=== PATIENT | female | born 1965 | race Caucasian/White ===

== ENCOUNTER 2020-06-12 09:55 | Emergency (ER) | payer BC, SELFPAY ==
[2020-06-12 10:15] VITALS: BP 142/98; PULSE 94; RESP 19; TEMP 36.6; O2SAT 98; BMI 29.5
--- NOTE | 2020-06-12 10:29 | HMH.EDUTC ---
[facility] [place] Disposition Clinical Impression: Exposure to COVID-19 virus Disposition: Home, Self-Care Condition on Discharge: Good Instructions: DI for COVID-19 (Suspected or Confirmed ), Coronavirus Disease 2019, Preventing the Spread of Coronavirus Discharge Instructions Additional Instructions: *Monitor Temp, Over the counter Motrin or Tylenol as directed/as needed Tylenol every 4 hours and Motrin every 6 hours (as long as your family doctor has told you that you can take it) for fever or pain. and straight to ER if unable to lower temp less than 101.0 after medication given *Warm salt water gargles may help to soothe the throat *Throat Lozenges *Warm fluids like tea with honey may help to soothe the throat *Sleep elevated *Humidifier/Vaporizer Follow up IMMEDIATELY for new or worsening symptoms or no Noticeable improvement over the next 48-72 hours. 911 for difficulty breathing or swallowing Over the counter Mucinex may help with your cough, make sure that you are drinking plenty of water with it You were tested for today for COVID19 your test result should be back in the next 24-48 hours, you may call to the [facility] to see if your test results are back in the next 48 hours [phone] [facility] hours are 9am-9pm You was given a handout with instructions for Self Quarantine and Self isolation for while you wait on test results and what to do if they are positive If you are positive the Health Dept will be contacting you also Referrals: Nile Carter MD [Primary Care Provider] - As needed Forms: Work/School Release Time of Disposition: 10:37 Medical Decision Making - Reji Inquiry Pt receiving controlled substance: No Reji was queried for this patient: No Vital Signs: 06/12/20 10:15 Temperature 97.8 F Temperature Source Oral Pulse Rate [Right Brachial] 94 H Respiratory Rate 19 Blood Pressure [Right Arm] 142/98 H Blood Pressure Mean [Right Arm] 112 Blood Pressure Source [Right Arm] Automatic Cuff Blood Pressure Position [Right Arm] Sitting 02 Sat by Pulse Oximetry 98 Oxygen Delivery Method Room Air Orders (Tests/Meds): ORDERS Category Date Time Status Covid-19 Nasal PCR ([facility]) Routine Lab 06/12/20 10:20 Received [facility] [place] HPI - General Stated complaint: covid test Time Seen by Provider: 06/12/20 10:30 Mode of Arrival: Ambulatory Source of Information: Patient Limitations: No Limitations Description of Symptoms (Recalled from Triage Doc. by RN): PATIENT REQUESTING COVID TEST D/T EXPOSURE; C/O COUGH X 2 DAYS HEENT Symptoms (Recalled from RN notes): No Resp Symptoms (Recalled from RN notes): Yes Skin Symptoms (Recalled from RN notes): No MS Symptoms (Recalled from RN notes): No Functional Status (Recalled from RN notes): WNL - History of Present Illness Provider Complaint: Patient state that she was recently exposed to COVID states that she is now having some symptoms so she wanted to come in and get tested States that she has been having body aches, cough and chills - Related Data Allergies Allergy/AdvReac Type Severity Reaction Status Date / Time No Known Allergies Allergy Verified 06/12/20 10:27 - Worker's Comp Is this a Worker's Comp case?: No H History - Hepatitis A Screen Drug use history?: No High risk sexual behaviors?: No History of sexually transmitted infection?: No Currently employed?: No Childcare worker?: No Do you have indoor plumbing?: Yes Do you have electricity?: Yes Attestation statement:: This patient has been screened for Hepatitis A risk factors. Laterality Cases: Bilateral: Tonsillectomy - Social History Alcohol Intake: never Occupational Status: other ROS Obtained: Yes All systems reviewed & no additional complaints, Yes Systems reviewed as appropriate & no additional complaints - Constitutional Constitutional: Reports system reviewed and no additional complaints, except as docu, Reports body ache, Reports chills, Denies fever(s), Denies headache(s) -
[2020-06-12 10:43] VITALS: BP 142/98; PULSE 94; RESP 19; TEMP 36.6; O2SAT 98
== END 2020-06-12 10:45 | disposition home or self-care (01) ==
PROVIDERS: Emergency Provider Nurse Practitioner; PCP Family Medicine
DX: Z20.822 Contact with and (suspected) exposure to COVID-19 (principal)
CPT/HCPCS: 99202; G0463; U0003

== ENCOUNTER → 2020-10-04 20:00 | Outpatient (CLI) | payer BC, SELFPAY | PROVIDERS: PCP Nurse Practitioner Family; Visit Provider Specialist | DX: G47.33 Obstructive sleep apnea (adult) (pediatric) (principal); I10 Essential (primary) hypertension; I63.9 Cerebral infarction, unspecified | CPT/HCPCS: 95810 ==

== ENCOUNTER → 2021-01-19 07:51 | Outpatient (CLI) | payer BC, SELFPAY ==
[2021-01-19 09:05] LABS: Chol/HDL Ratio 6.8 (1-3.5); Cholesterol 163 mg/dl (140-200); HDL Cholesterol 24 mg/dl (40-60); Triglycerides 310 mg/dl (30-150); VLDL Cholesterol 62 mg/dL (0-40)
[2021-01-19 09:15] LABS: Direct LDL Cholesterol 98.43 mg/dL (100-129)
== END ==
PROVIDERS: Visit Provider Nurse Practitioner Family
DX: I63.311 Cerebral infarction due to thrombosis of right middle cerebral artery (principal); Z72.0 Tobacco use
CPT/HCPCS: 36415; 80061

== ENCOUNTER → 2021-02-13 15:17 | Outpatient (CLI) | payer BC, SELFPAY | LOC: RT 15:19 | PROVIDERS: PCP Nurse Practitioner Family; Visit Provider Nurse Practitioner Family | DX: G47.33 Obstructive sleep apnea (adult) (pediatric) (principal); G47.8 Other sleep disorders; R53.83 Other fatigue; Z72.0 Tobacco use | CPT/HCPCS: 94762 ==

== ENCOUNTER → 2021-02-16 08:35 | Outpatient (CLI) | payer BC, SELFPAY ==
[2021-02-16 09:19] LABS: Basophils # 0.1 K/mm3 (0-0.2); Basophils % 1.3 % (0.1-2.0); Eosinophils # 0.3 K/mm3 (0.0-0.4); Eosinophils % 3.7 % (0.1-12.0); Hematocrit 43.2 % (37.0-47.0); Hemoglobin 13.7 g/dL (12.2-16.2); Lymphocytes # 2.2 K/mm3 (0.7-4.5); Lymphocytes % 26.2 % (10-50); Mean Corpuscular HGB Conc 31.7 g/dL (31.8-35.4); Mean Corpuscular Hemoglobin 29.2 pg (27.0-31.2); Mean Corpuscular Volume 92.1 fl (81-99); Mean Platelet Volume 7.4 fl (7.4-10.4); Monocytes # 0.4 K/mm3 (0.1-1.0); Monocytes % 4.8 % (1.7-9.3); Neutrophils # 5.4 K/mm3 (1.8-7.8); Neutrophils % 63.9 % (37.0-80.0); Platelet Count 373 K/mm3 (142-424); Red Cell Distribution Width 12.9 % (11.5-17.5); White Blood Count 8.5 K/mm3 (4.8-10.8)
[2021-02-16 10:29] LABS: Chloride 108 mmol/L (98-107); Potassium 4.2 mmoL/L (3.5-5.1); Sodium 143 mmol/L (136-145)
[2021-02-16 10:32] LABS: Alanine Aminotransferase 22 U/L (12-78); Albumin Level 4.3 g/dl (3.5-5.0); Albumin/Globulin Ratio 1.3 (1.1-1.8); Alkaline Phosphatase 121 U/L (38-126); Anion Gap 15.2 mEq/L (5-15); Aspartate Amino Transferase 45 U/L (14-36); Blood Urea Nitrogen 10 mg/dl (7-17); Calcium 9.7 mg/dl (8.4-10.2); Carbon Dioxide 24 mmol/L (22.0-30.0); Estimated Glomerular Filt Rate 58 ml/min (>60); GFR (African American) 70 ML/MIN (>60); Globulin 3.4 g/dL (1.3-3.2); Glucose 128 mg/dl (74-100); Total Protein,Serum 7.7 g/dl (6.3-8.2)
[2021-02-16 10:34] LABS: Bilirubin,Total 0.1 mg/dl (0.2-1.3)
[2021-02-16 11:05] LABS: 25-OH Vitamin D, Total 32.6 ng/mL (30-100); Thyroid Stimulating Hormone 2.88 uIU/mL (0.465-4.68)
[2021-02-16 11:09] LABS: Ferritin 180 ng/ml (11.1-264)
[2021-02-16 11:37] LABS: Vitamin B12 219 pg/mL (239-931)
== END ==
LOC: LAB 08:46
PROVIDERS: Visit Provider Nurse Practitioner Family
DX: I10 Essential (primary) hypertension (principal); R53.83 Other fatigue; E66.3 Overweight; Z68.30 Body mass index [BMI] 30.0-30.9, adult
CPT/HCPCS: 36415; 80053; 82306; 82607; 82728; 84443; 85025

== ENCOUNTER → 2021-04-20 07:13 | Outpatient (CLI) | payer BC, SELFPAY ==
[2021-04-20 09:04] LABS: Alanine Aminotransferase 16 U/L (12-78); Albumin Level 4.3 g/dl (3.5-5.0); Albumin/Globulin Ratio 1.5 (1.1-1.8); Alkaline Phosphatase 118 U/L (38-126); Anion Gap 11.8 mEq/L (5-15); Aspartate Amino Transferase 30 U/L (14-36); Blood Urea Nitrogen 7 mg/dl (7-17); Calcium 9.7 mg/dl (8.4-10.2); Carbon Dioxide 28 mmol/L (22.0-30.0); Chloride 104 mmol/L (98-107); Chol/HDL Ratio 5.7 (1-3.5); Cholesterol 154 mg/dl (140-200); Estimated Glomerular Filt Rate 65 ml/min (>60); GFR (African American) 79 ML/MIN (>60); Globulin 2.9 g/dL (1.3-3.2); Glucose 138 mg/dl (74-100); HDL Cholesterol 27 mg/dl (40-60); Potassium 3.8 mmoL/L (3.5-5.1); Sodium 140 mmol/L (136-145); Total Protein,Serum 7.2 g/dl (6.3-8.2); Triglycerides 223 mg/dl (30-150); VLDL Cholesterol 45 mg/dL (0-40)
[2021-04-20 09:10] LABS: Bilirubin,Total 0.1 mg/dl (0.2-1.3)
[2021-04-20 09:15] LABS: Direct LDL Cholesterol 97.12 mg/dL (100-129)
== END ==
PROVIDERS: Visit Provider Nurse Practitioner Family
DX: E78.5 Hyperlipidemia, unspecified (principal)
CPT/HCPCS: 36415; 80053; 80061

== ENCOUNTER 2021-10-17 13:10 | Emergency (ER) | payer OTHER, BC, SELFPAY ==
[2021-10-17 13:18] VITALS: BP 137/80; PULSE 85; RESP 16; TEMP 36.9; O2SAT 94; BMI 31.1
[2021-10-17 14:36] VITALS: BP 133/74; PULSE 76; RESP 19; TEMP 36.8; O2SAT 99; BMI 30.2
--- NOTE | 2021-10-17 14:42 | HMH.EDUTC ---
[facility] [place] Clinical Impression: Need for Tdap vaccination Avulsion of skin of right hand Qualifiers: Encounter type: initial encounter Qualified Code(s): S61.401A - Unspecified open wound of right hand, initial encounter Laceration of right hand Qualifiers: Encounter type: initial encounter Foreign body presence: without foreign body Qualified Code(s): S61.411A - Laceration without foreign body of right hand, initial encounter Disposition: Home, Self-Care Condition on Discharge: Good Instructions: DI for Avulsion Laceration (Not Requiring Sutures), How to Care for a Laceration After Repair, DI for Laceration Repair -- Simple Additional Instructions: Keep the wound clean and dry. Keep a dressing on it if you are going to be getting it dirty. Watch the for signs of infection, such as redness, swelling, drainage, fever. etc. Take tylenol or ibuprofen for pain. Follow up with your regular doctor. Return in 7 to 10 days to have the sutures removed. GO TO THE ER FOR ANY WORSENING SYMPTOMS OR CONCERNS. Prescriptions: cephALEXin [cephALEXin 500mg capsule] 500 mg PO Q6H 10 Days #40 cap Transmission Status: Pending to [facility] Referrals: Octavia Obrien APRN [Primary Care Provider] - Forms: Work/School Release Time of Disposition: 16:08 Medical Decision Making - Medical Records Medical records reviewed: No: I reviewed the patient's medical records. - Reji Inquiry Pt receiving controlled substance: No Vital Signs: 10/17/21 13:18 10/17/21 14:36 Temperature 98.4 F 98.2 F Temperature Source Oral Oral Pulse Rate [Left Radial] 85 76 Respiratory Rate 16 19 Blood Pressure [Left Arm] 137/80 133/74 Blood Pressure Mean [Left Arm] 99 93 Blood Pressure Source [Left Arm] Automatic Cuff Blood Pressure Position [Left Arm] Sitting 02 Sat by Pulse Oximetry 94 L 99 Oxygen Delivery Method Room Air Orders (Tests/Meds): ED MEDICATIONS Discontinued Medications Generic Name Dose Route Start Last Admin Trade Name Freq PRN Reason Stop Dose Admin Tetanus/Reduced Diphtheria/Acell Pertussis 0.5 ml 10/17/21 14:41 10/17/21 14:54 Tet/Diphth/Pert-Adult 0.5ml Syringe IM 10/17/21 14:42 0.5 ml .ONCE ONE Administration [facility] [place] - General Stated complaint: wc 10/17, right hand laceration Time Seen by Provider: 10/17/21 14:42 Mode of Arrival: Ambulatory Source of Information: Patient Limitations: No Limitations Description of Symptoms (Recalled from Triage Doc. by RN): pt here for cut on right hand. cut occured at work. HEENT Symptoms (Recalled from RN notes): No Resp Symptoms (Recalled from RN notes): No Skin Symptoms (Recalled from RN notes): Yes MS Symptoms (Recalled from RN notes): No Functional Status (Recalled from RN notes): wnl - History of Present Illness Provider Complaint: She was at work today at [employer] when the skin of the palm of her right hand became pinched between 2 pieces of metal. This caused a skin avulsion type injury with a flap type laceration.She denies any other injury. - Related Data Home Medications Medication Instructions Recorded Confirmed aspirin 81 mg tablet,delayed 81 mg PO DAILY 09/18/20 08/14/21 release rosuvastatin 10 mg tablet 10 mg PO DAILY 09/18/20 08/14/21 fenofibrate micronized 134 mg 134 mg PO DAILY cap 01/25/21 08/14/21 capsule mecobalamin (vitamin B12) 10,000 1,000 mcg IM .COMPLEX each 06/11/21 08/14/21 mcg solution for injection metoprolol succinate 25 mg 75 mg PO ONCE tab 06/11/21 08/14/21 tablet,extended release 24 hr sitagliptin 100 mg tablet 100 mg PO DAILY 06/11/21 08/14/21 Previous Rx's Medication Instructions Recorded cephALEXin [cephALEXin 500mg 500 mg PO Q6H 10 Days #40 cap 10/17/21 capsule] Allergies Allergy/AdvReac Type Severity Reaction Status Date / Time No Known Allergies Allergy Verified 10/17/21 14:39 - Worker's Comp Is this a Worker's Comp case?: Yes [facility] History
[2021-10-17 16:26] VITALS: BP 133/74; PULSE 76; RESP 19; TEMP 36.8
== END 2021-10-17 16:27 | disposition home or self-care (01) ==
LOC: ER 13:19 → UTC 13:19
PROVIDERS: Emergency Provider Nurse Practitioner Family; PCP Nurse Practitioner Family
DX: S61.411A Laceration without foreign body of right hand, initial encounter (principal); W31.89XA Contact with other specified machinery, initial encounter; Y92.63 Factory as the place of occurrence of the external cause; Y99.0 Civilian activity done for income or pay; F17.210 Nicotine dependence, cigarettes, uncomplicated; Z23 Encounter for immunization
CPT/HCPCS: 12001; 90715; 99213; G0463

== ENCOUNTER → 2021-11-05 07:26 | Outpatient (CLI) | payer BC, SELFPAY ==
[2021-11-05 08:20] LABS: Glucose 138 mg/dl (74-100); Total Protein,Serum 7.4 g/dl (6.3-8.2)
[2021-11-05 08:38] LABS: Hemoglobin A1C 6.7 % (4.0-6.0)
[2021-11-05 09:04] LABS: Albumin Level 4.6 g/dl (3.5-5.0); Albumin/Globulin Ratio 1.6 (1.1-1.8); Chloride 110 mmol/L (98-107); Globulin 2.8 g/dL (1.3-3.2); Potassium 4.1 mmoL/L (3.5-5.1); Sodium 143 mmol/L (136-145)
[2021-11-05 09:06] LABS: Blood Urea Nitrogen 11 mg/dl (7-17); Estimated Glomerular Filt Rate 58 ml/min (>60); GFR (African American) 70 ML/MIN (>60)
[2021-11-05 09:07] LABS: Alanine Aminotransferase 19 U/L (12-78); Alkaline Phosphatase 97 U/L (38-126); Anion Gap 12.1 mEq/L (5-15); Aspartate Amino Transferase 34 U/L (14-36); Bilirubin,Total 0.3 mg/dl (0.2-1.3); Calcium 10.4 mg/dl (8.4-10.2); Carbon Dioxide 25 mmol/L (22.0-30.0); Chol/HDL Ratio 6.2 (1-3.5); Cholesterol 161 mg/dl (140-200); HDL Cholesterol 26 mg/dl (40-60); Triglycerides 255 mg/dl (30-150); VLDL Cholesterol 51 mg/dL (0-40)
[2021-11-05 09:09] LABS: Vitamin B12 435 pg/mL (239-931)
[2021-11-05 09:18] LABS: Direct LDL Cholesterol 97.99 mg/dL (100-129)
== END ==
LOC: LAB 07:28
PROVIDERS: PCP Nurse Practitioner Family; Visit Provider Nurse Practitioner Family
DX: E11.65 Type 2 diabetes mellitus with hyperglycemia (principal); E78.5 Hyperlipidemia, unspecified; E53.8 Deficiency of other specified B group vitamins; Z79.84 Long term (current) use of oral hypoglycemic drugs
CPT/HCPCS: 36415; 80053; 80061; 82607; 83036; 84443

== ENCOUNTER → 2022-01-21 12:41 | Outpatient (CLI) | payer BC, SELFPAY ==
--- NOTE | 2022-01-21 12:45 | CA_ITS ---
FINAL REPORT TECHNIQUE: Color Doppler, duplex Doppler and compression sonography of the right lower extremity venous system was performed. CLINICAL HISTORY: Pain for 1 week, pt felt a pop behind her right knee on friday and has had pain and edema in calf since. Pt takes ASA 81 mg q day. CVA 2020, DM, FINDINGS: There is no evidence of deep venous thrombosis from the level of the groin to the calf. The veins are patent and compressible. A small to moderate presumed popliteal cyst is identified. IMPRESSION: No evidence of deep venous thrombosis right lower extremity. Small to moderate presumed popliteal cyst. Reviewed, Interpreted and Dictated by Fawad Wan III, MD Transcribed by Lolis Joyce Authenticated and [facility]
== END ==
LOC: RT 12:43
PROVIDERS: PCP Nurse Practitioner Family; Visit Provider Nurse Practitioner Family
DX: M79.604 Pain in right leg (principal); H02.842 Edema of right lower eyelid
CPT/HCPCS: 93971

== ENCOUNTER → 2022-05-01 14:12 | Outpatient (CLI) | payer BC, SELFPAY ==
--- NOTE | 2022-05-01 14:18 | MR_ITS ---
FINAL REPORT CLINICAL HISTORY: RIGHT KNEE PAIN right knee pain since jan 2022 swelling behind knee FINDINGS: Multiplanar MR imaging of the right knee was performed without contrast. There is medial meniscal degeneration with a high-grade partial tear of the posterior root. The lateral meniscus is intact. The anterior and posterior cruciate ligaments are intact. The medial collateral ligament and lateral ligamentous complex are intact. There are foci of patellar tendinitis. The quadriceps tendon is intact. There is no evidence of fracture. There is a 6 mm mass in the distal femur likely representing an enchondroma. There is mild degenerative change. There is moderate medial compartment chondromalacia. A moderate joint effusion is seen. The musculature is intact. There is a moderate popliteal cyst. IMPRESSION: Medial meniscal degeneration with a high-grade partial tear of the posterior root. Mild degenerative change with moderate medial compartment chondromalacia. Moderate joint effusion with moderate popliteal cyst. Foci of patellar tendinitis. 6 mm mass in the distal femur is likely an enchondroma. Reviewed, Interpreted and Dictated by Fawad Wan III, MD Transcribed by Oscar Barry Authenticated and [facility]
== END ==
LOC: RAD 14:12
PROVIDERS: PCP Nurse Practitioner Family; Visit Provider Orthopaedic Surgery
DX: M25.561 Pain in right knee (principal)
CPT/HCPCS: 73721

== ENCOUNTER → 2023-04-28 13:50 | Outpatient (CLI) | payer BC, SELFPAY ==
--- OUTSIDE RECORDS SUMMARY | 2023-04-28 13:54 | XMS_ITS ---
Author Name Unknown Address [address] [place] [address] Phone Organization [facility] Address [address] [place] [address] Phone Care Team Providers Care Hat Forming Machine Feeder Name Role Phone DANNY LOVE Unavailable [phone] Mounika OLSON, Dequan Unavailable [phone] Problems Includes: Active, inactive, and resolved Problems All Visits Onset Date Resolved Date Provider Condition S tatus Joint Pain in the Right Knee 01/29/2022 Jet Yun PA-C Active Plan of Treatment Pending Tests Order Diagnosis Results Due Ordering P roankit Radiology - MRI MRI R Knee 04/23/22 Jet england PA-C Instructions to patient Intervention and counseling on cessation of tobacco use Last Documented On 3 7:47AM ; [facility] Lose weight Last Documented On 3 8:14AM ; [facility] Lose weight Last Documented On 3 8:43AM ; [facility] Intervention and counseling on cessation of tobacco use Last Documented On 3 4:51PM ; [facility] Lose weight Last Documented On 3 8:03AM ; [facility]
--- OUTSIDE RECORDS SUMMARY | 2023-04-28 13:55 | XMS_ITS | Clinical Summary ---
Author Name Unknown Address [address] [place] [address] Phone Organization [facility] , [facility] Address [address] [place] [address] Phone Care Team Providers Care Construction Specialist Name Role Phone DANNY LOVE Unavailable [phone] Mounika OLSON, Dequan Unavailable [phone] Reason for Visit and Chief Complaint The Chief Complaint is: RT Knee scope POV Problems Includes: Problems addressed during this encounter and other active Problems All Visits Onset Date Resolved Date Provider Condition S tatus Joint Pain in the Right Knee 01/29/2022 Jet Yun PA-C Active Plan of Treatment Patient was seen by myself and Dr. Alex Yun PA-C. Patient will follow up 3 weeks and allow her to hopefully get back to work. She will continue with PT weight-bear as tolerated using crutches for couple days and then transition to 10 no crutches with walking she can begin strengthening with this too - Last Documented On 08/01/2022 4:51PM ; [facility], [facility] Pending Tests Order Diagnosis Results Due Ordering P rovider Therapy - Physical Therapy Knee 08/01/22 Elias Johnson MD Instructions to patient Intervention and counseling on cessation of tobacco use Last Documented On 3 4:51PM ; [facility], [facility] Lose weight Last Documented On 3 8:03AM ; [facility], [facility] Assessments Includes: Assessments from this encounter
--- OUTSIDE RECORDS SUMMARY | 2023-04-28 13:55 | XMS_ITS | Clinical Summary ---
Author Name Unknown Address [address] [place] [address] Phone Organization [facility] Address [address] [place] [place] [address] Phone Care Team Providers Care Nursing Teacher Name Role Phone DANNY LOVE Unavailable [phone] Dequan Ribera MD Unavailable [phone] Reason for Visit and Chief Complaint The Chief Complaint is: RT Knee scope POV Problems Includes: Problems addressed during this encounter and other active Problems All Visits Onset Date Resolved Date Provider Condition S tatus Joint Pain in the Right Knee 01/29/2022 Jet Yun PA-C Active Plan of Treatment Patient was seen by myself and Dr. Alex Yun PA-C. Patient will follow up as needed recommend no significant squatting past 90 degrees for her just we will continue to work on some strengthening exercises for quad and hip - Last Documented On 10/08/2022 7:47AM ; [facility], [facility] Instructions to patient Intervention and counseling on cessation of tobacco use Last Documented On 3 7:47AM ; [facility], [facility] Lose weight Last Documented On 3 8:14AM ; [facility], [facility] Assessments Includes: Assessments from this encounter Findings Right knee scope microfracture medial femoral condyle June 19, 2022 - Last Documented On 10/08/2022 7:47AM ; [facility], [facility] Instructions Includes: Instructions from this encounter
--- OUTSIDE RECORDS SUMMARY | 2023-04-28 13:55 | XMS_ITS ---
Care Plan - [facility], [facility] Created on: April 28, 2023 Angelica Lara : 1965 Sex: Female Author Name Unknown Address [address] [place] [address] [place] [address] Phone Organization [facility] , [facility] Address [address] [place] [address] Phone Care Team Providers Care Cipher Expert Name Role Phone DANNY LOVE Unavailable [phone] Dequan Ribera MD Unavailable [phone]
--- OUTSIDE RECORDS SUMMARY | 2023-04-28 13:55 | XMS_ITS | Clinical Summary ---
Author Name Unknown Address [address] [place] [address] Phone Organization [facility] , [facility] Address [address] [place] [address] Phone Care Team Providers Care Textile Machine Operator Name Role Phone DANNY LOVE Unavailable [phone] Dequan Ribera MD Unavailable [phone] Reason for Visit and Chief Complaint The Chief Complaint is: RT Knee scope POV Problems Includes: Problems addressed during this encounter and other active Problems All Visits Onset Date Resolved Date Provider Condition S tatus Joint Pain in the Right Knee 01/29/2022 Jet Yun PA-C Active Plan of Treatment Patient was seen by myself Jet Yun PA-C. Patient will follow up with Dr. Johnson in 6 weeks we will get her back to work on Friday with no restrictions I think she can advance to home program from physical therapy and do exercises on her own recommended she not do any deep squats past 90 degrees - Last Documented On 08/23/2022 9:27AM ; [facility] Pending Tests Order Diagnosis Results Due Ordering Chanelle schwartz Radiology - MRI MRI R Knee 04/23/22 Jet england PA-C Instructions to patient Lose weight Last Documented On 8:43AM ; [facility] Assessments Includes: Assessments from this encounter Findings Right knee scope microfracture medial femoral condyle June 19, 2022 - Last Documented On 08/23/2022 9:27AM ; [facility]
--- OUTSIDE RECORDS SUMMARY | 2023-04-28 13:56 | XMS_ITS | Clinical Summary ---
Author Name Unknown Address [address] [place] [address] Phone Organization [facility] , [facility] Address [address] [place] [address] Phone Care Team Providers Care Clinical Data Abstractor Name Role Phone DANNY LOVE Unavailable [phone] Mounika OLSON, Dequan Unavailable [phone] Reason for Visit and Chief Complaint [facility] Problems Includes: Problems addressed during this encounter and other active Problems All Visits Onset Date Resolved Date Provider Condition S tatus Joint Pain in the Right Knee 01/29/2022 Jet Yun PA-C Active Plan of Treatment No Plan of Treatment Recorded Assessments Includes: Assessments from this encounter No Assessments Recorded Medical Equipment - Implanted Devices Includes: Current Devices No Medical Equipment Recorded Medications Includes: Medications discussed during this encounter and other current Medications Current Medications (continue as prescribed) Aspir-Low 81 MG Oral Tablet Delayed Release 01/29/2022 Provider: Diagnosis: Metoprolol Succinate ER 50 M G Oral Tablet Extended Release 24 Hour 01/24/2022 Provider: DANNY LOVE Diagnosis: Rosuvastatin Calcium 10 MG Oral Tablet 01/08/2022 Pr ovider: DANNY LOVE
--- OUTSIDE RECORDS SUMMARY | 2023-04-28 13:56 | XMS_ITS | Clinical Summary ---
Author Name Unknown Address [address] [place] [address] Phone Organization [facility] , [facility] Address [address] [place] [place] [address] Phone Care Team Providers Care Loan Servicing Representative Name Role Phone DANNY LOVE Unavailable [phone] Dequan Ribera MD Unavailable [phone] Reason for Visit and Chief Complaint The Chief Complaint is: RT Knee scope POV Problems Includes: Problems addressed during this encounter and other active Problems All Visits Onset Date Resolved Date Provider Condition S tatus Joint Pain in the Right Knee 01/29/2022 Jet Yun PA-C Active Plan of Treatment Patient was seen by myself Jet Yun PA-C. Patient will follow up [address] Johnson she will stay toe-touch weightbearing with the operative side with crutches we will have her start some physical therapy to maintain range of motion to be educated on quad sets straight leg raises four-way hip exercises - Last Documented On 07/02/2022 1:43PM ; [facility], [facility] Pending Tests Order Diagnosis Results Due Ordering Chanelle schwartz Radiology - MRI MRI R Knee 04/23/22 Jet england PA-C Instructions to patient Intervention and counseling on cessation of tobacco use Last Documented On 3 1:20PM ; [facility], [facility] Lose weight Last Documented On 3 1:20PM ; [facility], [facility]
[2023-04-28 14:16] LABS: Alanine Aminotransferase 14 U/L (12-78); Albumin Level 4.8 g/dl (3.5-5.0); Albumin/Globulin Ratio 1.4 (1.1-1.8); Alkaline Phosphatase 144 U/L (38-126); Anion Gap 14.5 mEq/L (5-15); Aspartate Amino Transferase 27 U/L (14-36); Bilirubin,Total 0.2 mg/dl (0.2-1.3); Blood Urea Nitrogen 14 mg/dl (7-17); Carbon Dioxide 27 mmol/L (22.0-30.0); Chloride 104 mmol/L (98-107); Chol/HDL Ratio 6.9 (1-3.5); Cholesterol 233 mg/dl (140-200); Estimated Glomerular Filt Rate 57 ml/min (>60); GFR (African American) 69 ML/MIN (>60); Globulin 3.5 g/dL (1.3-3.2); Glucose 98 mg/dl (74-100); HDL Cholesterol 34 mg/dl (40-60); Potassium 4.5 mmoL/L (3.5-5.1); Sodium 141 mmol/L (136-145); Total Protein,Serum 8.3 g/dl (6.3-8.2); Triglycerides 280 mg/dl (30-150); VLDL Cholesterol 56 mg/dL (0-40)
[2023-04-28 14:26] LABS: Direct LDL Cholesterol 131.95 mg/dL (100-129)
[2023-04-28 14:46] LABS: Thyroid Stimulating Hormone 1.79 uIU/mL (0.465-4.68)
[2023-04-28 15:01] LABS: Hemoglobin A1C 5.7 % (4.0-6.0)
[2023-04-28 18:33] LABS: Microalbumin < 6.000 mg/L (0-16.7)
== END ==
LOC: LAB.DROPOF 13:51
PROVIDERS: PCP Nurse Practitioner Family; Visit Provider Nurse Practitioner Family
DX: E78.2 Mixed hyperlipidemia (principal); E11.69 Type 2 diabetes mellitus with other specified complication; E66.9 Obesity, unspecified; Z68.27 Body mass index [BMI] 27.0-27.9, adult; Z79.84 Long term (current) use of oral hypoglycemic drugs
CPT/HCPCS: 80053; 80061; 82043; 83036; 84443

== ENCOUNTER 2023-06-16 14:18 | Outpatient (CLI) | payer BC, SELFPAY | END 2023-06-16 23:59 | LOC: LAB.DROPOF 14:19 | PROVIDERS: PCP Nurse Practitioner Family; Visit Provider Nurse Practitioner Family | DX: J02.9 Acute pharyngitis, unspecified (principal); Z72.0 Tobacco use | CPT/HCPCS: 87070 ==

== ENCOUNTER 2023-08-04 14:03 | Outpatient (CLI) | payer BC, SELFPAY ==
[2023-08-04 14:50] LABS: Hemoglobin A1C 5.7 % (4.0-6.0)
[2023-08-04 15:01] LABS: Alanine Aminotransferase 11 U/L (12-78); Albumin Level 4.4 g/dl (3.5-5.0); Albumin/Globulin Ratio 1.3 (1.1-1.8); Alkaline Phosphatase 142 U/L (38-126); Aspartate Amino Transferase 22 U/L (14-36); Bilirubin,Total 0.3 mg/dl (0.2-1.3); Blood Urea Nitrogen 15 mg/dl (7-17); Calcium 9.7 mg/dl (8.4-10.2); Carbon Dioxide 27 mmol/L (22.0-30.0); Chloride 108 mmol/L (98-107); Chol/HDL Ratio 8.6 (1-3.5); Cholesterol 257 mg/dl (140-200); Estimated Glomerular Filt Rate 65 ml/min (>60); GFR (African American) 78 ML/MIN (>60); Globulin 3.3 g/dL (1.3-3.2); Glucose 93 mg/dl (74-100); HDL Cholesterol 30 mg/dl (40-60); Sodium 141 mmol/L (136-145); Total Protein,Serum 7.7 g/dl (6.3-8.2); Triglycerides 344 mg/dl (30-150); VLDL Cholesterol 69 mg/dL (0-40)
[2023-08-04 15:12] LABS: Direct LDL Cholesterol 146.56 mg/dL (100-129)
== END 2023-08-04 23:59 ==
LOC: LAB.DROPOF 14:04
PROVIDERS: PCP Nurse Practitioner Family; Visit Provider Nurse Practitioner Family
DX: E11.69 Type 2 diabetes mellitus with other specified complication (principal); I10 Essential (primary) hypertension; E78.2 Mixed hyperlipidemia; E66.9 Obesity, unspecified; Z68.27 Body mass index [BMI] 27.0-27.9, adult; Z79.899 Other long term (current) drug therapy
CPT/HCPCS: 80053; 80061; 83036

== ENCOUNTER 2023-11-05 15:39 | Outpatient (CLI) | payer OTHER, SELFPAY ==
[2023-11-05 15:34] LABS: Alanine Aminotransferase 16 U/L (12-78); Albumin Level 4.5 g/dl (3.5-5.0); Albumin/Globulin Ratio 1.4 (1.1-1.8); Alkaline Phosphatase 127 U/L (38-126); Anion Gap 16.4 mEq/L (5-15); Aspartate Amino Transferase 29 U/L (14-36); Bilirubin,Total 0.3 mg/dl (0.2-1.3); Blood Urea Nitrogen 10 mg/dl (7-17); Calcium 9.6 mg/dl (8.4-10.2); Carbon Dioxide 26 mmol/L (22.0-30.0); Chloride 105 mmol/L (98-107); Chol/HDL Ratio 5.6 (1-3.5); Cholesterol 157 mg/dl (140-200); Estimated Glomerular Filt Rate 65 ml/min (>60); GFR (African American) 78 ML/MIN (>60); Globulin 3.2 g/dL (1.3-3.2); Glucose 87 mg/dl (74-100); HDL Cholesterol 28 mg/dl (40-60); Potassium 4.4 mmoL/L (3.5-5.1); Sodium 143 mmol/L (136-145); Total Protein,Serum 7.7 g/dl (6.3-8.2); Triglycerides 369 mg/dl (30-150); VLDL Cholesterol 74 mg/dL (0-40)
[2023-11-05 15:45] LABS: Direct LDL Cholesterol 78.25 mg/dL (100-129)
[2023-11-05 15:54] LABS: Hemoglobin A1C 6.1 % (4.0-6.0)
[2023-11-05 16:05] LABS: Thyroid Stimulating Hormone 1.99 uIU/mL (0.465-4.68)
== END 2023-11-05 23:59 | disposition home or self-care (01) ==
LOC: LAB.DROPOF 15:39
PROVIDERS: PCP Nurse Practitioner Family; Visit Provider Nurse Practitioner Family
DX: E78.2 Mixed hyperlipidemia (principal); E11.69 Type 2 diabetes mellitus with other specified complication; E66.9 Obesity, unspecified; I10 Essential (primary) hypertension; Z79.84 Long term (current) use of oral hypoglycemic drugs; Z68.28 Body mass index [BMI] 28.0-28.9, adult; Z79.899 Other long term (current) drug therapy
CPT/HCPCS: 80053; 80061; 83036; 84443

== ENCOUNTER 2024-03-08 16:37 | Outpatient (CLI) | payer OTHER, SELFPAY ==
[2024-03-08 18:27] LABS: Alanine Aminotransferase 22 U/L (12-78); Albumin Level 4.2 g/dl (3.5-5.0); Albumin/Globulin Ratio 1.4 (1.1-1.8); Alkaline Phosphatase 113 U/L (38-126); Anion Gap 12.7 mEq/L (5-15); Aspartate Amino Transferase 44 U/L (14-36); Bilirubin,Total 0.4 mg/dl (0.2-1.3); Blood Urea Nitrogen 11 mg/dl (7-17); Calcium 9.8 mg/dl (8.4-10.2); Carbon Dioxide 24 mmol/L (22.0-30.0); Chloride 103 mmol/L (98-107); Chol/HDL Ratio 5.3 (1-3.5); Cholesterol 126 mg/dl (140-200); Estimated Glomerular Filt Rate 65 ml/min (>60); GFR (African American) 78 ML/MIN (>60); Globulin 3.1 g/dL (1.3-3.2); Glucose 132 mg/dl (74-100); HDL Cholesterol 24 mg/dl (40-60); Potassium 3.7 mmoL/L (3.5-5.1); Sodium 136 mmol/L (136-145); Total Protein,Serum 7.3 g/dl (6.3-8.2); Triglycerides 184 mg/dl (30-150); VLDL Cholesterol 37 mg/dL (0-40)
[2024-03-08 18:38] LABS: Direct LDL Cholesterol 71.69 mg/dL (100-129)
[2024-03-08 18:59] LABS: Thyroid Stimulating Hormone 1.62 uIU/mL (0.465-4.68)
== END 2024-03-08 23:59 | disposition home or self-care (01) ==
LOC: LAB.DROPOF 03-10 16:37
PROVIDERS: PCP Nurse Practitioner Family; Visit Provider Nurse Practitioner Family
DX: E78.2 Mixed hyperlipidemia (principal); E11.69 Type 2 diabetes mellitus with other specified complication; E66.9 Obesity, unspecified; I10 Essential (primary) hypertension; Z68.29 Body mass index [BMI] 29.0-29.9, adult; Z72.0 Tobacco use
CPT/HCPCS: 80053; 80061; 82043; 83036; 84443

== ENCOUNTER 2024-06-23 09:44 | Outpatient (CLI) | payer OTHER, SELFPAY ==
[2024-06-23 14:09] LABS: Albumin Level 4.7 g/dl (3.5-5.0); Chloride 107 mmol/L (98-107); Potassium 4.4 mmoL/L (3.5-5.1); Sodium 139 mmol/L (136-145)
[2024-06-23 14:11] LABS: Blood Urea Nitrogen 18 mg/dl (7-17); Estimated Glomerular Filt Rate 51 ml/min (>60); GFR (African American) 62 ML/MIN (>60)
[2024-06-23 14:12] LABS: Alanine Aminotransferase 22 U/L (12-78); Albumin/Globulin Ratio 1.7 (1.1-1.8); Alkaline Phosphatase 127 U/L (38-126); Anion Gap 14.4 mEq/L (5-15); Aspartate Amino Transferase 31 U/L (14-36); Bilirubin,Total 0.2 mg/dl (0.2-1.3); Calcium 10.1 mg/dl (8.4-10.2); Carbon Dioxide 22 mmol/L (22.0-30.0); Chol/HDL Ratio 5.6 (1-3.5); Cholesterol 141 mg/dl (140-200); Globulin 2.8 g/dL (1.3-3.2); Glucose 244 mg/dl (74-100); HDL Cholesterol 25 mg/dl (40-60); Total Protein,Serum 7.5 g/dl (6.3-8.2); Triglycerides 275 mg/dl (30-150); VLDL Cholesterol 55 mg/dL (0-40)
[2024-06-23 14:23] LABS: Direct LDL Cholesterol 82.18 mg/dL (100-129)
[2024-06-23 14:25] LABS: Creatinine,Urine Random 22 mg/dL (Not Estab.); Microalbumin < 6.000 mg/L (0-16.7)
[2024-06-23 14:44] LABS: Thyroid Stimulating Hormone 2.31 uIU/mL (0.465-4.68)
== END 2024-06-23 23:59 | disposition home or self-care (01) ==
LOC: LAB.DROPOF 06-24 09:44
PROVIDERS: PCP Nurse Practitioner Family; Visit Provider Nurse Practitioner Family
DX: E78.2 Mixed hyperlipidemia (principal); E66.9 Obesity, unspecified; E11.69 Type 2 diabetes mellitus with other specified complication; I10 Essential (primary) hypertension
CPT/HCPCS: 80053; 80061; 82043; 82570; 83036; 84443

== ENCOUNTER 2024-09-08 10:40 | Outpatient (CLI) | payer OTHER, SELFPAY ==
[2024-09-08 11:29] LABS: Albumin Level 4.9 g/dl (3.5-5.0); Chloride 106 mmol/L (98-107); Potassium 4.2 mmoL/L (3.5-5.1); Sodium 142 mmol/L (136-145)
[2024-09-08 11:31] LABS: Blood Urea Nitrogen 15 mg/dl (7-17)
[2024-09-08 11:32] LABS: Alanine Aminotransferase 25 U/L (12-78); Albumin/Globulin Ratio 1.5 (1.1-1.8); Alkaline Phosphatase 167 U/L (38-126); Anion Gap 15.2 mEq/L (5-15); Aspartate Amino Transferase 37 U/L (14-36); Bilirubin,Total 0.4 mg/dl (0.2-1.3); Calcium 10.2 mg/dl (8.4-10.2); Carbon Dioxide 25 mmol/L (22.0-30.0); Cholesterol 162 mg/dl (140-200); Estimated Glomerular Filt Rate 57 ml/min (>60); GFR (African American) 69 ML/MIN (>60); Globulin 3.3 g/dL (1.3-3.2); Glucose 164 mg/dl (74-100); Total Protein,Serum 8.2 g/dl (6.3-8.2); Triglycerides 269 mg/dl (30-150); VLDL Cholesterol 54 mg/dL (0-40)
[2024-09-08 11:33] LABS: Chol/HDL Ratio 5.4 (1-3.5); HDL Cholesterol 30 mg/dl (40-60)
[2024-09-08 11:44] LABS: Direct LDL Cholesterol 90.63 mg/dL (100-129)
[2024-09-08 12:03] LABS: Thyroid Stimulating Hormone 2.71 uIU/mL (0.465-4.68)
[2024-09-08 12:08] LABS: Hemoglobin A1C 7.6 % (4.0-6.0)
[2024-09-08 12:11] LABS: HIV Combo NEGATIVE (Negative)
[2024-09-08 12:20] LABS: Hepatitis C Ab Qual. W/ RFX NEGATIVE (Negative)
[2024-09-10 16:20] LABS: Alkaline Phosphatase 184 IU/L (44-121); Bone Fraction: 62 % (14-68); Intestinal Frac.: 4 % (0-18); Liver Fraction: 35 % (18-85)
== END 2024-09-08 23:59 | disposition home or self-care (01) ==
LOC: LAB.DROPOF 10:41
PROVIDERS: PCP Nurse Practitioner Family; Visit Provider Nurse Practitioner Family
DX: E11.69 Type 2 diabetes mellitus with other specified complication (principal); Z11.4 Encounter for screening for human immunodeficiency virus [HIV]; Z11.59 Encounter for screening for other viral diseases; E66.9 Obesity, unspecified; E78.2 Mixed hyperlipidemia; I10 Essential (primary) hypertension; R74.8 Abnormal levels of other serum enzymes
CPT/HCPCS: 80053; 80061; 83036; 83735; 84075; 84080; 84443; 86803; 87389

== ENCOUNTER 2024-12-15 14:14 | Outpatient (CLI) | payer OTHER, SELFPAY ==
[2024-12-15 14:52] LABS: Hemoglobin A1C 9.2 % (4.0-6.0)
[2024-12-15 15:37] LABS: Albumin Level 5.1 g/dl (3.5-5.0); Chloride 102 mmol/L (98-107); Potassium 5.2 mmoL/L (3.5-5.1); Sodium 140 mmol/L (136-145)
[2024-12-15 15:39] LABS: Blood Urea Nitrogen 15 mg/dl (7-17); Creatinine,Serum 1.00 mg/dl (0.52-1.04); Estimated Glomerular Filt Rate 57 ml/min (>60); GFR (African American) 69 ML/MIN (>60)
[2024-12-15 15:40] LABS: Alanine Aminotransferase 22 U/L (12-78); Albumin/Globulin Ratio 1.5 (1.1-1.8); Alkaline Phosphatase 124 U/L (38-126); Anion Gap 19.2 mEq/L (5-15); Aspartate Amino Transferase 34 U/L (14-36); Bilirubin,Total 0.3 mg/dl (0.2-1.3); Calcium 10.4 mg/dl (8.4-10.2); Carbon Dioxide 24 mmol/L (22.0-30.0); Cholesterol 144 mg/dl (140-200); Globulin 3.3 g/dL (1.3-3.2); Glucose 152 mg/dl (74-100); HDL Cholesterol 28 mg/dl (40-60); Magnesium 2.2 mg/dl (1.6-2.3); Total Protein,Serum 8.4 g/dl (6.3-8.2); Triglycerides 289 mg/dl (30-150)
[2024-12-15 16:10] LABS: Thyroid Stimulating Hormone 2.73 uIU/mL (0.465-4.68)
== END 2024-12-15 23:59 | disposition home or self-care (01) ==
LOC: LAB.DROPOF 14:15
PROVIDERS: PCP Nurse Practitioner Family; Visit Provider Nurse Practitioner Family
DX: E11.9 Type 2 diabetes mellitus without complications (principal); E66.9 Obesity, unspecified; I10 Essential (primary) hypertension; E78.2 Mixed hyperlipidemia
CPT/HCPCS: 80053; 80061; 82043; 82570; 83036; 83735; 84443

== ENCOUNTER 2025-03-16 09:25 | Outpatient (CLI) | payer OTHER, SELFPAY ==
[2025-03-16 17:12] LABS: Hemoglobin A1C 8.0 % (4.0-6.0)
[2025-03-16 17:32] LABS: Alanine Aminotransferase 25 U/L (12-78); Albumin Level 4.8 g/dl (3.5-5.0); Albumin/Globulin Ratio 1.5 (1.1-1.8); Alkaline Phosphatase 215 U/L (38-126); Anion Gap 21.6 mEq/L (5-15); Aspartate Amino Transferase 34 U/L (14-36); Bilirubin,Total 0.5 mg/dl (0.2-1.3); Blood Urea Nitrogen 18 mg/dl (7-17); Calcium 9.8 mg/dl (8.4-10.2); Carbon Dioxide 24 mmol/L (22.0-30.0); Chloride 102 mmol/L (98-107); Cholesterol 146 mg/dl (140-200); Creatinine,Serum 1.20 mg/dl (0.52-1.04); Estimated Glomerular Filt Rate 46 ml/min (>60); GFR (African American) 56 ML/MIN (>60); Globulin 3.1 g/dL (1.3-3.2); Glucose 173 mg/dl (74-100); HDL Cholesterol 25 mg/dl (40-60); Magnesium 2.2 mg/dl (1.6-2.3); Potassium 4.6 mmoL/L (3.5-5.1); Sodium 143 mmol/L (136-145); Total Protein,Serum 7.9 g/dl (6.3-8.2); Triglycerides 367 mg/dl (30-150)
[2025-03-16 18:01] LABS: Thyroid Stimulating Hormone 4.13 uIU/mL (0.465-4.68)
[2025-03-18 11:12] LABS: Triiodothyronine (T3) Free 3.8 pg/mL (2.0-4.4)
[2025-03-18 12:48] LABS: FSH 54.7 mIU/mL (.)
[2025-03-18 14:12] LABS: Cortisol,AM 11.8 ug/dL (6.2-19.4)
== END 2025-03-16 23:59 | disposition home or self-care (01) ==
LOC: LAB.DROPOF 03-18 00:24
PROVIDERS: PCP Nurse Practitioner Family; Visit Provider Nurse Practitioner Family
DX: E78.2 Mixed hyperlipidemia (principal); E11.69 Type 2 diabetes mellitus with other specified complication; E66.9 Obesity, unspecified; I10 Essential (primary) hypertension; R23.2 Flushing
CPT/HCPCS: 80053; 80061; 82533; 82670; 83001; 83036; 83735; 84144; 84443; 84481

== ENCOUNTER 2025-03-30 08:48 | Outpatient (CLI) | payer OTHER, SELFPAY ==
[2025-03-30 13:42] LABS: Anion Gap 19.4 mEq/L (5-15); Blood Urea Nitrogen 17 mg/dl (7-17); Calcium 10.1 mg/dl (8.4-10.2); Carbon Dioxide 23 mmol/L (22.0-30.0); Chloride 102 mmol/L (98-107); Creatinine,Serum 1.00 mg/dl (0.52-1.04); Estimated Glomerular Filt Rate 57 ml/min (>60); GFR (African American) 69 ML/MIN (>60); Glucose 229 mg/dl (74-100); Potassium 4.4 mmoL/L (3.5-5.1); Sodium 140 mmol/L (136-145)
--- OUTSIDE RECORDS SUMMARY | 2025-03-31 13:23 | XMS_ITS | Clinical Summary ---
Author Organization [facility] , [facility] Address [address] [place] [address] Phone Care Team Providers Care Wirer Maintenance Name Role Phone DANNY LOVE Unavailable [phone] Dequan Ribera MD Unavailable [phone] Reason for Visit and Chief Complaint [facility] Problems Includes: Problems addressed during this encounter and other active Problems All Visits Onset Date Resolved Date Provider Condition S tatus Joint Pain Right Knee 01/29/2022 Jet Yun PA-C Active Last Documented On 2 2:52PM ; [facility], [facility] Plan of Treatment No Plan of Treatment Recorded Assessments Includes: Assessments from this encounter No Assessments Recorded Medical Equipment - Implanted Devices Includes: Current Devices No Medical Equipment Recorded Medications Includes: Medications discussed during this encounter and other current Medications Current Medications (continue as prescribed) Aspir-Low 81 MG Oral Tablet Delayed Release 01/29/2022 Provider: Diagnosis: Last Documented On 2 3:07PM By Mervat Temple [facility], [facility] Metoprolol Succinate ER 50 M G Oral Tablet Extended Release 24 Hour 01/24/2022 Provider: DANNY LOVE Diagnosis: Last Documented On 2 3:06PM By Mervat Paula ; [facility], [facility] Rosuvastatin Calcium 10 MG Oral Tablet 01/08/2022 Pr ovider: DANNY LOVE Diagnosis: Last Documented On 2 3:06PM By Mervat Paula ; [facility], [facility] Fenofibrate Micronized 134 MG Oral Capsule 11/13/2021 Provider: DANNY LOVE Diagnosis: Last Documented On 2 3:06PM By Mervat Paula ; [facility], [facility] Januvia 100 MG Oral Tablet 10/26/2021 Provider: Joelle LOVE Diagnosis: Last Documented On 2 3:06PM By Mervat [facility], [facility] Medications Administered Includes: Administered Medications from this encounter No Administered Medications Recorded Results Includes: Results discussed during this encounter No Results Recorded For Specified Dates History of Present Illness Includes: History of Present Illness from this encounter No History of Present Illness Recorded Social History No Social History Recorded - Smoking Status Unknown Medical History Includes: Medical History addressed during this encounter No Medical History Recorded Family History Includes: Family History addressed during this encounter No Family History Recorded Review of Systems Includes: Review of Systems from this encounter No Review of Systems Recorded Mental Status Includes: Mental Status from this encounter No Mental Status Recorded Functional Status Includes: Functional Status from this encounter No Functional Status Recorded Physical Exam Includes: Physical Exam from this encounter No Physical Exam Recorded Allergies Includes: Active Allergies No Known Allergies Encounters Encounter Provider Location Date Check-In Time Check-Out Time Diagnosis [facility] Elias Johnson MD Surgery 3 06/20/2022 10:51AM 11:59PM Insurance Includes: Active Insurance Policies Plan Name Member ID Group # Subscriber Relationship Effect merari Dates 1 - [facility] [id number] Angelica Hicks 06/09/2021 - Unknown Clinical Notes Includes: Clinical Notes from this encounter No Clinical Notes Recorded
--- OUTSIDE RECORDS SUMMARY | 2025-03-31 13:23 | XMS_ITS | Clinical Summary ---
Author Organization [facility] , [facility] Address [address] [place] [address] Phone Care Team Providers Care Mangle Feeder Name Role Phone DANNY LOVE Unavailable [phone] Dequan Ribera MD Unavailable [phone] Reason for Visit and Chief Complaint The Chief Complaint is: RT Knee scope POV Problems Includes: Problems addressed during this encounter and other active Problems All Visits Onset Date Resolved Date Provider Condition S tatus Joint Pain Right Knee 01/29/2022 Jet Yun PA-C Active Last Documented On 2 2:52PM ; [facility], [facility] Plan of Treatment Patient was seen by [...] - Last Documented On 08/23/2022 9:27AM ; [facility], [facility] Pending Tests Order Diagnosis Results Due Ordering Chanelle schwartz Radiology - MRI MRI R Knee 04/23/22 Jet england PA-C Last Documented On 2 3:58PM ; [facility], [facility] Instructions to patient Lose weight Last Documented On 3 8:43AM ; [facility], [facility] Assessments Includes: Assessments from this encounter Findings Right knee scope microfracture medial femoral condyle June 19, 2022 - Last Documented On 08/23/2022 9:27AM ; [facility], [facility] Instructions Includes: Instructions from this encounter Instructions to patient Lose weight Last Documented On 3 8:43AM ; [facility], [facility] Medical Equipment - Implanted Devices Includes: Current Devices No Medical Equipment Recorded Medications Includes: Medications discussed during this encounter and other current Medications Current Medications (continue as prescribed) Aspir-Low 81 MG Oral Tablet Delayed Release 01/29/2022 Provider: Diagnosis: Last Documented On 2 3:07PM By Mervat Paula ; [facility] Metoprolol Succinate ER 50 M G Oral Tablet Extended Release 24 Hour 01/24/2022 Provider: DANNY LOVE Diagnosis: Last Documented On 2 3:06PM By Mervat Paula ; [facility] Rosuvastatin Calcium 10 MG Oral Tablet 01/08/2022 Pr ovider: DANNY LOVE Diagnosis: Last Documented On 2 3:06PM By Mervat Paula ; [facility] Fenofibrate Micronized 134 MG Oral Capsule 11/13/2021 Provider: DANNY LOVE Diagnosis: Last Documented On 2 3:06PM By Mervat Paula ; [facility] Januvia 100 MG Oral Tablet 10/26/2021 Provider: Joelle LOVE Diagnosis: Last Documented On 2 3:06PM By Mervat Paula ; [facility] Past Medications on file HYDROcodone-Acetaminophen 5- 325 MG Oral Tablet 06/17/2022 - 07/02/2022 Provider: Elias Johnson MD Diagnosis: 1 po q 4h prn pain Last Documented On 3 9:26AM By Elias Johnson ; [facility], [facility] Medications Administered Includes: Administered Medications from this encounter No Administered Medications Recorded Results Includes: Results discussed during this encounter No Results Recorded For Specified Dates History of Present Illness Includes: History of Present Illness from this encounter HPI Angelica Lara is a 57 year old female. - Allergy list reviewed - Problem list reviewed - Medication list reviewed with patient Patient is here today for follow-up of her right knee scope with microfracture medial femoral condyle June 19, 2022. Patient states she is doing good she really has no pain with the right knee she finished out physical therapy 's week. She would like to see if she can get back to work at this point in time Social History Description Last Updated Tobacco use 10/08/2022 Last Documented On 3 8:43AM ; [facility] Alcohol use 10/08/2022 Last Documented On 3 8:43AM ; [facility] Not using drugs 10/08/2022 Last Documented On 3 8:43AM ; [facility] Yes, current smoker. 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 Last Documented On 3 8:43AM ; [facility], [facility] Not a tobacco non-user 01/29/2022 Last Documented On 3 8:43AM ; [facility] Smoking Status Unknown Procedures and Surgical History Includes: Procedures from this encounter Procedures Code Diagnosis Performing Provider Service L ocation Service Date use of tobacco assessment performed 1000F Last Documented On 3 8:43AM ; [facility], [facility] Surgical History Last Updated History of appendectomy 01/29/2022 Last Documented On 3 8:43AM ; [facility] History of History of Gallbladder 2021 Last Documented On 3 8:43AM ; [facility], [facility] Medical History Includes: Medical History addressed during this encounter Description Last Updated No recent immunization for pneumococcal pneumonia 01/29/2022 Last Documented On 3 8:43AM ; [facility] Recent immunization for flu 2020 022 Last Documented On 3 8:43AM ; [facility], [facility] History of History of Heart Attack / Str presley 01/29/2022 Last Documented On 3 8:43AM ; [facility], [facility] History of Sleep Apnea 01/29/2022 Last Documented On 3 8:43AM ; [facility], [facility] Recent immunization for flu 01/29/2022 Last Documented On 3 8:43AM ; [facility], [facility] Use of CPAP 01/29/2022 Last Documented On 3 8:43AM ; [facility], [facility] Family History Includes: Family History addressed during this encounter Description Last Updated Family history of cancer 01/29/2022 Last Documented On 3 8:43AM ; [facility] Stroke / Seizures 01/29/2022 Last Documented On 3 8:43AM ; [facility], [facility] Maternal grandfather's history of Stroke / Seizures 01/29/2022 Last Documented On 3 8:43AM ; [facility], [facility] Maternal grandmother's history of Stroke / Seizures 01/29/2022 Last Documented On 3 8:43AM ; [facility], [facility] Maternal history of family history of ca ncer 01/29/2022 Last Documented On 3 8:43AM ; [facility] Paternal grandfather's history of Stroke / Seizures 01/29/2022 Last Documented On 3 8:43AM ; [facility], [facility] Paternal history of Stroke / Seizures Last Documented On 3 8:43AM ; [facility], [facility] Review of Systems Includes: Review of Systems from this encounter Systemic: No symptoms, not feeling tired, no recent weight loss, and no recent weight gain. Head: No headache and no sinus pain. Eyes: No vision problems and no Cataracts. Glasses/Contacts. No Glaucoma. Otolaryngeal: Hearing loss. No tinnitus. Cardiovascular: No chest pain or discomfort, no palpitations, and no Hypertension. High Cholesterol. Pulmonary: No daytime asthma symptoms and no chronic cough. No wheezing. Gastrointestinal: No heartburn and no abdominal pain. No Indigestion, no Acid Reflux, no Peptic Ulcer, no GI Stomach Bleed, and no Ulcers. Endocrine: No hot flashes, no muscle weakness, no Diabetes, no Hypothyroid, and no Hyperthyroid. Hematologic: No easy bleeding, no tendency for easy bruising, and no Anemia. Musculoskeletal: No Arthritis and no lower back pain. No soft tissue swelling and no localized joint pain. Neurological: No dizziness, no convulsions, and no numbness. Psychological: No anxiety, no emotional lability, no depression, and no insomnia. Not crying for no reason. Skin: Skin symptoms Have clip in right breast from biopsy. No dry skin. No Ulcers, no Scars, and no rash. Allergic and Immunologic: No complaint of seasonal allergic reaction. Mental Status Includes: Mental Status from this encounter Description No anxiety Functional Status Includes: Functional Status from this encounter No Functional Status Recorded Physical Exam Includes: Physical Exam from this encounter Allergies Includes: Active Allergies No Known Allergies Encounters Encounter Provider Location Date Check-In Time Check- Out Time Diagnosis Post Op Jet Yun PA-C [facility] 3 8:33AM 9:08AM Insurance Includes: Active Insurance Policies Plan Name Member ID Group # Subscriber Relationship Effect [facility] Dates [id number] Angelica Lara Self 06/09/2021 - Unknown Clinical Notes Includes: Clinical Notes from this encounter * Progress note Date Encounter Last Documented by 08/23/2022 Post Op Last documented on 08/23/2022; 9:27 AM, Jet Yun PA-C; [facility] Active Problems & Conditions - Joint Pain in the Right Knee Chief Complaint The Chief Complaint is: RT Knee scope POV. Referred Here Referred by Self. History of Present Illness Angelica Lara is a 57 year old female. - Allergy list reviewed - Problem list reviewed - Medication list reviewed with patient Patient is here today for follow-up of her right knee scope with microfracture medial femoral condyle June 19, 2022. Patient states she is doing good she really has no pain with the right knee she finished out physical therapy 's week. She would like to see if she can get back to work at this point in time Current Medication - Aspir-Low 81 MG Oral Tablet Delayed Release 0 days, 0 refills - Fenofibrate Micronized 134 MG Oral Capsule 90 days, 0 refills - Januvia 100 MG Oral Tablet 90 days, 0 refills - Metoprolol Succinate ER 50 MG Oral Tablet Extended Release 24 Hour 90 days, 0 refills - Rosuvastatin Calcium 10 MG Oral Tablet 90 days, 0 refills Past Medical/Surgical History Reported: Use of CPAP. Immunization History: Recent immunization for flu 2020. Recent immunization for flu. No recent immunization for pneumococcal pneumonia. Diagnoses: Sleep Apnea History of Heart Attack / Stroke Procedural: - History of Gallbladder Surgical: - Appendectomy Social History Yes, current smoker. Current diet: No recent change in diet. Caffeine use: Caffeine use. Tobacco use: Tobacco use. Not a tobacco non-user. Alcohol: Alcohol use alcohol use: 2 drinks or less per day. Drug Use: Not using drugs. Never used drugs. Habits: Exercising regularly. 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 Allergies - No Known Allergies Family History Cancer Stroke / Seizures Paternal: Stroke / Seizures Maternal: Cancer Paternal grandfather's: Stroke / Seizures Maternal grandfather's: Stroke / Seizures Maternal grandmother's: Stroke / Seizures Review Of Systems Systemic: No symptoms, not feeling tired, no recent weight loss, and no recent weight gain. Head: No headache and no sinus pain. Eyes: No vision problems and no Cataracts. Glasses/Contacts. No Glaucoma. Otolaryngeal: Hearing loss. No tinnitus. Cardiovascular: No chest pain or discomfort, no palpitations, and no Hypertension. High Cholesterol. Pulmonary: No daytime asthma symptoms and no chronic cough. No wheezing. Gastrointestinal: No heartburn and no abdominal pain. No Indigestion, no Acid Reflux, no Peptic Ulcer, no GI Stomach Bleed, and no Ulcers. Endocrine: No hot flashes, no muscle weakness, no Diabetes, no Hypothyroid, and no Hyperthyroid. Hematologic: No easy bleeding, no tendency for easy bruising, and no Anemia. Musculoskeletal: No Arthritis and no lower back pain. No soft tissue swelling and no localized joint pain. Neurological: No dizziness, no convulsions, and no numbness. Psychological: No anxiety, no emotional lability, no depression, and no insomnia. Not crying for no reason. Skin: Skin symptoms Have clip in right breast from biopsy. No dry skin. No Ulcers, no Scars, and no rash. Allergic and Immunologic: No complaint of seasonal allergic reaction. Physical Findings Her incisions were healed there is no swelling with the right knee she is nontender over the medial femoral condyle or medial compartment of the right knee she has full range of motion with the right knee right knee strength 5 out of 5 and walks with a normal gait Assessment Right knee scope microfracture medial femoral condyle June 19, 2022 Counseling/Education - Lose weight Plan Patient was seen by myself Jet Yun PA-C. Patient will follow up with Dr. Johnson in 6 weeks we will get her back to work on Friday with no restrictions I think she can advance to home program from physical therapy and do exercises on her own recommended she not do any deep squats past 90 degrees Notes This dictation was done with voice recognition software and may contain errors and omissions. Practice Management Use of tobacco assessment performed. Care Team - DANNY LOVE Health Reminders - Assess Tobacco Use satisfied 01/29/2022. - Follow Up Plan BMI Management satisfied 08/23/2022.
--- OUTSIDE RECORDS SUMMARY | 2025-03-31 13:23 | XMS_ITS | Clinical Summary ---
Author Organization [facility] , [facility] Address [address] [place] [address] Phone Care Team Providers Care Electronic Warfare Technician Name Role Phone DANNY LOVE Unavailable [phone] Dequan Ribera MD Unavailable [phone] Reason for Visit and Chief Complaint The Chief Complaint is: RT Knee scope POV Problems Includes: Problems addressed during this encounter and other active Problems All Visits Onset Date Resolved Date Provider Condition S tatus Joint Pain Right Knee 01/29/2022 Jet Yun PA-C Active Last Documented On 2 2:52PM ; [facility], [facility] Plan of Treatment Patient was seen by myself and Dr. Alex Yun PA-C. Patient will follow up as needed recommend no significant squatting past 90 degrees for her just we will continue to work on some strengthening exercises for quad and hip - Last Documented On 10/08/2022 7:47AM ; [facility], [facility] Instructions to patient Intervention and counseling on cessation of tobacco use Last Documented On 3 7:47AM ; [facility], [facility] Lose weight Last Documented On 3 8:14AM ; [facility], [facility] Assessments Includes: Assessments from this encounter Findings Right knee scope microfracture medial femoral condyle June 19, 2022 - Last Documented On 10/08/2022 7:47AM ; [facility], [facility] Instructions Includes: Instructions from this encounter Instructions to patient Intervention and counseling on cessation of tobacco use Last Documented On 3 7:47AM ; [facility], [facility] Lose weight Last Documented On 3 8:14AM ; [facility], [facility] Medical Equipment - Implanted Devices Includes: Current Devices No Medical Equipment Recorded Medications Includes: Medications discussed during this encounter and other current Medications Current Medications (continue as prescribed) Aspir-Low 81 MG Oral Tablet Delayed Release 01/29/2022 Provider: Diagnosis: Last Documented On 2 3:07PM By Mervat Paula ; [facility], [facility] Metoprolol Succinate ER 50 M G Oral Tablet Extended Release 24 Hour 01/24/2022 Provider: DANNY LOVE Diagnosis: Last Documented On 2 3:06PM By Mervat Paula ; [facility], [facility] Rosuvastatin Calcium 10 MG Oral Tablet 01/08/2022 Pr ovider: DANNY LOVE Diagnosis: Last Documented On 2 3:06PM By Mervat Paula ; [facility], [facility] Fenofibrate Micronized 134 MG Oral Capsule 11/13/2021 Provider: DANNY LOVE Diagnosis: Last Documented On 2 3:06PM By Mervat Paula ; [facility] Januvia 100 MG Oral Tablet 10/26/2021 Provider: Joelle LOVE Diagnosis: Last Documented On 2 3:06PM By Mervat Paula ; [facility], [facility] Past Medications on file HYDROcodone-Acetaminophen 5- 325 MG Oral Tablet 06/17/2022 - 07/02/2022 Provider: Elias Johnson MD Diagnosis: 1 po q 4h prn pain Last Documented On 3 9:26AM By Elias Johnson ; [facility], [facility] Medications Administered Includes: Administered Medications from this encounter No Administered Medications Recorded Vital Signs Includes: Vital Signs from this encounter Vital Name 10/03/2022 08:15A Height (in) 61 Weight (lb) 175 Body Mass Index 33.1 Body Surface Area 1.8 Note: mg Last Documented: On 10/03/2022 8:15AM ; [facility], [facility] Results Includes: Results discussed during this encounter No Results Recorded For Specified Dates History of Present Illness Includes: History of Present Illness from this encounter ALESIA Lara is a 57 year old female. - Allergy list reviewed - Problem list reviewed - Medication list reviewed with patient Follow-up of her right knee scope with microfracture medial femoral condyle June 19, 2022. Patient is happy with the procedure she still notices sometimes it will buckle with walking though she is not having any pain with the knee she has been able to work her 9 to 12-hour days Social History Description Last Updated Tobacco use 10/08/2022 Last Documented On 3 7:47AM ; [facility] Alcohol use 10/08/2022 Last Documented On 3 7:47AM ; [facility], [facility] Not using drugs 10/08/2022 Last Documented On 3 7:47AM ; [facility] Yes, current smoker. 10/08/2022 Last Documented On 3 7:47AM ; 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 Smoking Status Unknown Procedures and Surgical History Includes: Procedures from this encounter Procedures Code Diagnosis Performing Provider Service L ocation Service Date intervention and counseling on cessation of tobacco use 4000F Last Documented On 3 7:47AM ; [facility], [facility] use of tobacco assessment performed 1000F Last Documented On 3 8:14AM ; [facility], [facility] Surgical History Last Updated History of appendectomy 01/29/2022 Last Documented On 3 8:14AM ; [facility] History of History of Gallbladder 2021 Last Documented On 3 8:14AM ; [facility], [facility] Medical History Includes: Medical History addressed during this encounter Description Last Updated No recent immunization for pneumococcal pneumonia 01/29/2022 Last Documented On 3 8:14AM ; [facility] Recent immunization for flu 2020 022 Last Documented On 3 8:14AM ; [facility], [facility] History of History of Heart Attack / Str presley 01/29/2022 Last Documented On 3 8:14AM ; [facility], [facility] History of Sleep Apnea 01/29/2022 Last Documented On 3 8:14AM ; [facility], [facility] Recent immunization for flu 01/29/2022 Last Documented On 3 8:14AM ; [facility], [facility] Use of CPAP 01/29/2022 Last Documented On 3 8:14AM ; [facility], [facility] Family History Includes: Family History addressed during this encounter Description Last Updated Maternal grandfather's history of Stroke / Seizures 01/29/2022 Last Documented On 3 8:14AM ; [facility], [facility] Maternal grandmother's history of Stroke / Seizures 01/29/2022 Last Documented On 3 8:14AM ; [facility], [facility] Maternal history of family history of ca ncer 01/29/2022 Last Documented On 3 8:14AM ; [facility], [facility] Paternal grandfather's history of Stroke / Seizures 01/29/2022 Last Documented On 3 8:14AM ; [facility], [facility] Paternal history of Stroke / Seizures Last Documented On 3 8:14AM ; [facility], [facility] Review of Systems Includes: Review of [...] Date Check-In Time Check- Out Time Diagnosis Follow Up Elias Johnson MD [facility] 3 7:57AM 8:45AM Insurance Includes: Active Insurance Policies Plan Name Member ID Group # Subscriber Relationship Effect merari Dates 1 - [facility] [id number] 1 [id number] Angelica Lara Self 06/09/2021 - Unknown Clinical Notes Includes: Clinical Notes from this encounter * Progress note Date Encounter Last Documented by 10/03/2022 Follow Up Last documented on 10/08/2022; 7:47 AM, Elias Johnson MD; [facility], [facility] Active Problems & Conditions - Joint Pain in the Right Knee Chief Complaint The Chief Complaint is: RT Knee scope POV. Referred Here Referred by Self. History of Present Illness Angelica Lara is a 57 year old female. - Allergy list reviewed - Problem list reviewed - Medication list reviewed with patient Follow-up of her right knee scope with microfracture medial femoral condyle June 19, 2022. Patient is happy with the procedure she still notices sometimes it will buckle with walking though she is not having any pain with the knee she has been able to work her 9 to 12-hour days Current Medication - Aspir-Low 81 MG Oral [...] use: Caffeine use. Tobacco use: Tobacco use. Alcohol: Alcohol use. Drug Use: Not using drugs. Habits: Exercising regularly. 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 Allergies - No Known Allergies Family History Paternal: Stroke / Seizures Maternal: Cancer Paternal [...] complaint of seasonal allergic reaction. Physical Findings - Vitals taken 10/03/2022 08:15 am mg Height 61 in Weight 175 lbs Body Mass Index 33.1 kg/m2 Body Surface Area 1.8 m2 Standard Measurements: - Patient was overweight. Walks with a normal gait right knee nontender to palpation there is no swelling right knee strength 5 out of 5 Assessment Right knee scope microfracture medial femoral condyle June 19, 2022 Previous Tests Available previous imaging studies were reviewed Available previous history reviewed Therapy - Intervention and counseling on cessation of tobacco use. Counseling/Education - Lose weight Plan Patient was seen by myself and Dr. Alex Yun PA-C. Patient will follow up as needed recommend no significant squatting past 90 degrees for her just we will continue to work on some strengthening exercises for quad and hip Notes This dictation was done with voice recognition software and may contain errors and omissions. Practice Management Use of tobacco assessment performed. Care Team - DANNY LOVE Health Reminders - Assess BMI satisfied 10/03/2022. - Assess Tobacco Use satisfied 10/08/2022. - Follow Up Plan BMI Management satisfied 10/03/2022. - Smoking & Tobacco Cessation Intervention and Counseling satisfied 10/08/2022.
--- OUTSIDE RECORDS SUMMARY | 2025-03-31 13:23 | XMS_ITS | Clinical Summary ---
Author Organization [facility] Address [address] [place] [address] Phone Care Team Providers Care Dirt Supervisor Name Role Phone DANNY LOVE Unavailable [phone] Dequan Ribera MD Unavailable [phone] Reason for Visit and Chief Complaint The Chief Complaint is: RT Knee scope POV Problems Includes: Problems addressed during this encounter and other active Problems All Visits Onset Date Resolved Date Provider Condition S tatus Joint Pain Right Knee 01/29/2022 Jet Yun PA-C Active Last Documented On 2 2:52PM ; [facility], [facility] Plan of Treatment Patient was [...] - Last Documented On 07/02/2022 1:43PM ; [facility], [facility] Pending Tests Order Diagnosis Results Due Ordering Chanelle schwartz Radiology - MRI MRI R Knee 04/23/22 Jet england PA-C Last Documented On 2 3:58PM ; [facility], [facility] Therapy - Physical Therapy Knee 07/02/22 Jet Yun PA-C Last Documented On 3 1:43PM ; [facility], [facility] Instructions to patient Intervention and counseling on cessation of tobacco use Last Documented On 3 1:20PM ; [facility], [facility] Lose weight Last Documented On 3 1:20PM ; [facility], [facility] Assessments Includes: Assessments from this encounter Findings Right knee scope microfracture medial femoral condyle June 19, 2022 - Last Documented On 07/02/2022 1:43PM ; [facility] Instructions Includes: Instructions from this encounter Instructions to patient Intervention and counseling on cessation of tobacco use Last Documented On 3 1:20PM ; [facility] Lose weight Last Documented On 3 1:20PM ; [facility] Medical Equipment - Implanted Devices Includes: Current Devices No Medical Equipment Recorded Medications Includes: Medications discussed during this encounter and other current Medications Current Medications (continue as prescribed) Aspir-Low 81 MG Oral Tablet Delayed Release 01/29/2022 Provider: Diagnosis: Last Documented On 2 3:07PM By Mervat Paula ; [facility] Metoprolol Succinate ER 50 M G Oral Tablet Extended Release 24 Hour 01/24/2022 Provider: DANNY LOVE Diagnosis: Last Documented On 2 3:06PM By Mervat Paula ; [facility] Rosuvastatin Calcium 10 MG Oral Tablet 01/08/2022 Pr ovider: DANNY LOVE Diagnosis: Last Documented On 2 3:06PM By Mervat Paula ; [facility] Fenofibrate Micronized 134 MG Oral Capsule 11/13/2021 Provider: DANNY LOVE Diagnosis: Last Documented On 2 3:06PM By Mervat Paula ; [facility] Januvia 100 MG Oral Tablet 10/26/2021 Provider: Joelle LOVE Diagnosis: Last Documented On 2 3:06PM By Mervat Paula ; [facility] Past Medications on file HYDROcodone-Acetaminophen 5- 325 MG Oral Tablet 06/17/2022 - 07/02/2022 Provider: Elias Johnson MD Diagnosis: 1 po q 4h prn pain Last Documented On 3 9:26AM By Elias Johnson ; [facility] Medications Administered Includes: Administered Medications from this encounter No Administered Medications Recorded Vital Signs Includes: Vital Signs from this encounter Vital Name 07/02/2022 01:27P Blood Pressure Sitting (mmHg) 134/59 Pulse Rate-Sitting (bpm) 114 Height (in) 61 Weight (lb) 175 Body Mass Index 33.1 Body Surface Area 1.8 Note: MG Last Documented: On 07/02/2022 1:27PM ; [facility] Results Includes: Results discussed during this encounter No Results Recorded For Specified Dates History of Present Illness Includes: History of Present Illness from this encounter HPI Angelica Lara is a 56 year old female. - Allergy list reviewed - Problem list reviewed - Medication list reviewed Follow-up on her right knee scope with microfracture of medial femoral condyle June 19, 2021 doing well we will see use been icing this a lot at home has not started any physical therapy using crutches toe-touch weightbearing Social History Description Last Updated Tobacco use 10/08/2022 Last Documented On 3 1:20PM ; [facility] Alcohol use 10/08/2022 Last Documented On 3 1:20PM ; [facility] Not using drugs 10/08/2022 Last Documented On 3 1:20PM ; [facility] Yes, current smoker. 10/08/2022 Last Documented On 3 1:20PM ; [facility] Caffeine use 01/29/2022 Last Documented On 3 1:20PM ; [facility] Exercising regularly 01/29/2022 Last Documented On 3 1:20PM ; [facility] No recent change in diet 01/29/2022 Last Documented On 3 1:20PM ; [facility] Alcohol use: 2 drinks or less per day Last Documented On 3 1:20PM ; [facility] Never used drugs 01/29/2022 Last Documented On 3 1:20PM ; [facility] Working [employer] 01/29/2022 Last Documented On 3 1:20PM ; [facility] Not a tobacco non-user 01/29/2022 Last Documented On 3 1:20PM ; [facility] Smoking Status Unknown Procedures and Surgical History Includes: Procedures from this encounter Procedures Code Diagnosis Performing Provider Service L ocation Service Date intervention and counseling on cessation of tobacco use 4000F Last Documented On 3 1:20PM ; [facility] use of tobacco assessment performed 1000F Last Documented On 3 1:20PM ; [facility] Surgical History Last Updated History of appendectomy 01/29/2022 Last Documented On 3 1:20PM ; [facility] History of History of Gallbladder 2021 Last Documented On 3 1:20PM ; [facility] Medical History Includes: Medical History addressed during this encounter Description Last Updated No recent immunization for pneumococcal pneumonia 01/29/2022 Last Documented On 3 1:20PM ; [facility] Recent immunization for flu 2020 022 Last Documented On 3 1:20PM ; [facility] History of History of Heart Attack / Str [place] 01/29/2022 Last Documented On 3 1:20PM ; [facility] History of Sleep Apnea 01/29/2022 Last Documented On 3 1:20PM ; [facility] Recent immunization for flu 01/29/2022 Last Documented On 3 1:20PM ; [facility] Use of CPAP 01/29/2022 Last Documented On 3 1:20PM ; [facility] Family History Includes: Family History addressed during this encounter Description Last Updated Family history of cancer 01/29/2022 Last Documented On 3 1:20PM ; [facility] Stroke / Seizures 01/29/2022 Last Documented On 3 1:20PM ; [facility] Maternal grandfather's history of Stroke / Seizures 01/29/2022 Last Documented On 3 1:20PM ; [facility] Maternal grandmother's history of Stroke / Seizures 01/29/2022 Last Documented On 3 1:20PM ; [facility] Maternal history of family history of ca ncer 01/29/2022 Last Documented On 3 1:20PM ; [facility] Paternal grandfather's history of Stroke / Seizures 01/29/2022 Last Documented On 3 1:20PM ; [facility] Paternal history of Stroke / Seizures Last Documented On 3 1:20PM ; [facility] Review of Systems Includes: Review of Systems [...] Time Diagnosis Post Op Jet Yun PA-C [facility] 3 1:09PM 1:41PM Insurance Includes: Active Insurance Policies Plan Name Member ID Group # Subscriber Relationship Effect merari Dates 1 - [facility] [id number] 1 [id number] Angelica Lara Kurt 06/09/2021 - Unknown Clinical Notes Includes: Clinical Notes from this encounter * Progress note Date Encounter Last Documented by 07/02/2022 Post Op Last documented on 07/02/2022; 1:43 PM, Jet uYn PA-C; [facility] Active Problems & Conditions - Joint Pain in the Right Knee Chief Complaint The Chief Complaint is: RT Knee scope POV. Referred Here Referred by. History of Present Illness Angelica Lara is a 56 year old female. - Allergy list reviewed - Problem list reviewed - Medication list reviewed Follow-up on her right knee scope with microfracture of medial femoral condyle June 19, 2021 doing well we will see use been icing this a lot at home has not started any physical therapy using crutches toe-touch weightbearing Current Medication - Aspir-Low 81 MG Oral [...] used drugs. Habits: Exercising regularly. Work: Working [employer]. Allergies - No Known Allergies Family History [...] allergic reaction. Physical Findings - Vitals taken 07/02/2022 01:27 pm MG BP-Sitting 134/59 mmHg Pulse Rate-Sitting 114 bpm Height 61 in Weight 175 lbs Body Mass Index 33.1 kg/m2 Body Surface Area 1.8 m2 Standard Measurements: - Patient was overweight. Minimal swelling with the right knee range of motion 0 to about 110 portal sites clean dry intact with Steri-Strips those were removed today negative Homans toe-touch weightbearing with crutches Assessment Right knee scope microfracture medial femoral condyle June 19, 2022 Previous Tests Available previous imaging studies were reviewed Available previous history reviewed Therapy - Intervention and counseling on cessation of tobacco use. Counseling/Education - Lose weight Plan StartCited - Other Therapy/Physical Therapy: Knee Instructions: See PT order attached EndCited Patient was seen by myself Jet Yun PA-C. Patient will follow up [address] Johnson she will stay toe-touch weightbearing with the operative side with crutches we will have her start some physical therapy to maintain range of motion to be educated on quad sets straight leg raises four-way hip exercises Notes This dictation was done with voice recognition software and may contain errors and omissions. Practice Management Use of tobacco assessment performed. Care Team - DANNY LOVE
--- OUTSIDE RECORDS SUMMARY | 2025-03-31 13:23 | XMS_ITS | Clinical Summary ---
Author Organization [facility] Address [address] [address] Phone Care Team Providers Care Roller Setter Name Role Phone DANNY LOVE Unavailable [phone] Dequan Ribera MD Unavailable [phone] Reason for Visit and Chief Complaint The Chief Complaint is: RT Knee scope POV Problems Includes: Problems addressed during this encounter and other active Problems All Visits Onset Date Resolved Date Provider Condition S tatus Joint Pain Right Knee 01/29/2022 Jet Yun PA-C Active Last Documented On 2 2:52PM ; [facility], [facility] Plan of Treatment Patient was seen [...] - Last Documented On 08/01/2022 4:51PM ; [facility], [facility] Pending Tests Order Diagnosis Results Due Ordering P rovider Therapy - Physical Therapy Knee 08/01/22 Elias Johnson MD Last Documented On 3 4:51PM ; [facility] Instructions to patient Intervention and counseling on cessation of tobacco use Last Documented On 3 4:51PM ; [facility], [facility] Lose weight Last Documented On 3 8:03AM ; [facility] Assessments Includes: Assessments from this encounter Findings Right knee scope microfracture medial femoral condyle June 19, 2022 - Last Documented On 08/01/2022 4:51PM ; [facility] Instructions Includes: Instructions from this encounter Instructions to patient Intervention and counseling on cessation of tobacco use Last Documented On 3 4:51PM ; [facility] Lose weight Last Documented On 3 8:03AM ; [facility] Medical Equipment - Implanted Devices Includes: Current Devices No Medical Equipment Recorded Medications Includes: Medications discussed during this encounter and other current Medications Current Medications (continue as prescribed) Aspir-Low 81 MG Oral Tablet Delayed Release 01/29/2022 Provider: Diagnosis: Last Documented On 2 3:07PM By Mervat Paula ; [facility] Metoprolol Succinate ER 50 M G Oral Tablet Extended Release 24 Hour 01/24/2022 Provider: DANNY LOVE Diagnosis: Last Documented On 2 3:06PM By Mervat Paula ; [facility] Rosuvastatin Calcium 10 MG Oral Tablet 01/08/2022 Pr ovider: DANNY LOVE Diagnosis: Last Documented On 2 3:06PM By Mervat Paula ; [facility] Fenofibrate Micronized 134 MG Oral Capsule 11/13/2021 Provider: DANNY LOVE Diagnosis: Last Documented On 2 3:06PM By Mervat Paula ; [facility] Januvia 100 MG Oral Tablet 10/26/2021 Provider: Joelle LOVE Diagnosis: Last Documented On 2 3:06PM By Mervat Paula ; [facility] Past Medications on file HYDROcodone-Acetaminophen 5- 325 MG Oral Tablet 06/17/2022 - 07/02/2022 Provider: Elias Johnson MD Diagnosis: 1 po q 4h prn pain Last Documented On 3 9:26AM By Elias Johnson ; [facility] Medications Administered Includes: Administered Medications from this encounter No Administered Medications Recorded Vital Signs Includes: Vital Signs from this encounter Vital Name 08/01/2022 08:03A Height (in) 61 Weight (lb) 173 Body Mass Index 32.7 Body Surface Area 1.8 Note: mg Last Documented: On 08/01/2022 8:03AM ; [facility] Results Includes: Results discussed during this encounter No Results Recorded For Specified Dates History of Present Illness Includes: History of Present Illness from this encounter HPI Angelica Lara is a 57 year old female. - Allergy list reviewed - Problem list reviewed - Medication list reviewed with patient Follow-up right knee scope microfracture femoral condyle June 19, 2022. Patient states that she is doing good no pain she has been walking over the last week which is 1 crutch Social History Description Last Updated Tobacco use 10/08/2022 Last Documented On 3 8:03AM ; [facility] Alcohol use 10/08/2022 Last Documented On 3 8:03AM ; [facility] Not using drugs 10/08/2022 Last Documented On 3 8:03AM ; [facility] Yes, current smoker. 10/08/2022 Last Documented On 3 8:03AM ; [facility] Caffeine use 01/29/2022 Last Documented On 3 8:03AM ; [facility] Exercising regularly 01/29/2022 Last Documented On 3 8:03AM ; [facility] No recent change in diet 01/29/2022 Last Documented On 3 8:03AM ; [facility] Alcohol use: 2 drinks or less per day Last Documented On 3 8:03AM ; [facility] Never used drugs 01/29/2022 Last Documented On 3 8:03AM ; [facility]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 Last Documented On 3 8:03AM ; [facility] Not a tobacco non-user 01/29/2022 Last Documented On 3 8:03AM ; [facility] Smoking Status Unknown Procedures and Surgical History Includes: Procedures from this encounter Procedures Code Diagnosis Performing Provider Service L ocation Service Date intervention and counseling on cessation of tobacco use 4000F Last Documented On 3 4:51PM ; [facility] use of tobacco assessment performed 1000F Last Documented On 3 8:03AM ; [facility] Surgical History Last Updated History of appendectomy 01/29/2022 Last Documented On 3 8:03AM ; [facility] History of History of Gallbladder 2021 Last Documented On 3 8:03AM ; [facility] Medical History Includes: Medical History addressed during this encounter Description Last Updated No recent immunization for pneumococcal pneumonia 01/29/2022 Last Documented On 3 8:03AM ; [facility] Recent immunization for flu 2020 022 Last Documented On 3 8:03AM ; [facility] History of History of Heart Attack / Str presley 01/29/2022 Last Documented On 3 8:03AM ; [facility] History of Sleep Apnea 01/29/2022 Last Documented On 3 8:03AM ; [facility] Recent immunization for flu 01/29/2022 Last Documented On 3 8:03AM ; [facility] Use of CPAP 01/29/2022 Last Documented On 3 8:03AM ; [facility] Family History Includes: Family History addressed during this encounter Description Last Updated Family history of cancer 01/29/2022 Last Documented On 3 8:03AM ; [facility] Stroke / Seizures 01/29/2022 Last Documented On 3 8:03AM ; [facility] Maternal grandfather's history of Stroke / Seizures 01/29/2022 Last Documented On 3 8:03AM ; [facility] Maternal grandmother's history of Stroke / Seizures 01/29/2022 Last Documented On 3 8:03AM ; [facility] Maternal history of family history of ca ncer 01/29/2022 Last Documented On 3 8:03AM ; [facility] Paternal grandfather's history of Stroke / Seizures 01/29/2022 Last Documented On 3 8:03AM ; [facility] Paternal history of Stroke / Seizures Last Documented On 3 8:03AM ; [facility] Review of Systems Includes: Review of [...] Time Check- Out Time Diagnosis Post Op Elias Johnson MD [facility] 3 7:56AM 8:30AM Insurance Includes: Active Insurance Policies Plan Name Member ID Group # Subscriber Relationship Effect [facility] Dates [id number] [id number] Angelica Lara Self 06/09/2021 - Unknown Clinical Notes Includes: Clinical Notes from this encounter * Progress note Date Encounter Last Documented by 08/01/2022 Post Op Last documented on 08/01/2022; 4:51 PM, Elias Johnson MD; [facility] Active Problems & Conditions - Joint Pain in the Right Knee Chief Complaint The Chief Complaint is: RT Knee scope POV. Referred Here Referred by Self. History of Present Illness Angelica Lara is a 57 year old female. - Allergy list reviewed - Problem list reviewed - Medication list reviewed with patient Follow-up right knee scope microfracture femoral condyle June 19, 2022. Patient states that she is doing good no pain she has been walking over the last week which is 1 crutch Current Medication - Aspir-Low 81 MG Oral [...] used drugs. Habits: Exercising regularly. 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 Allergies - No Known Allergies Family History [...] allergic reaction. Physical Findings - Vitals taken 08/01/2022 08:03 am mg Height 61 in Weight 173 lbs Body Mass Index 32.7 kg/m2 Body Surface Area 1.8 m2 Standard Measurements: - Patient was overweight. There is no swelling with the right knee incisions were all healed range of motion 0-125 Assessment Right knee scope microfracture medial femoral condyle June 19, 2022 Previous Tests Available previous imaging studies were reviewed Available previous history reviewed Therapy - Intervention and counseling on cessation of tobacco use. Counseling/Education - Lose weight Plan StartCited - Other Therapy/Physical Therapy: Knee Instructions: See PT order attached EndCited Patient was seen by myself and Dr. Alex Yun PA-C. Patient will follow up 3 weeks and allow her to hopefully get back to work. She will continue with PT weight-bear as tolerated using crutches for couple days and then transition to 10 no crutches with walking she can begin strengthening with this too Notes This dictation was done with voice recognition software and may contain errors and omissions. Practice Management Use of tobacco assessment performed. Care Team - DANNY LOVE Health Reminders - Assess BMI satisfied 08/01/2022. - Assess Tobacco Use satisfied 01/29/2022. - Follow Up Plan BMI Management satisfied 08/01/2022. - Smoking & Tobacco Cessation Intervention and Counseling satisfied 08/01/2022.
--- OUTSIDE RECORDS SUMMARY | 2025-03-31 13:24 | XMS_ITS ---
Author Organization [facility] Address [address] [place] [address] Phone Care Team Providers Care Casino Worker Name Role Phone DANNY LOVE Unavailable [phone] Dequan Ribera MD Unavailable [phone] Problems Includes: Active, inactive, and resolved Problems All Visits Onset Date Resolved Date Provider Condition S tatus Joint Pain Right Knee 01/29/2022 Jet Yun PA-C Active Last Documented On 2 2:52PM ; [facility] Plan of Treatment Pending Tests Order Diagnosis Results Due Ordering P rovider Radiology - MRI MRI R Knee 04/23/22 Jet england PA-C Last Documented On 2 3:58PM ; [facility] Instructions to patient Intervention and counseling on cessation of tobacco use Last Documented On 3 7:47AM ; [facility] Lose weight Last Documented On 3 8:14AM ; [facility] Lose weight Last Documented On 3 8:43AM ; [facility] Intervention and counseling on cessation of tobacco use Last Documented On 3 4:51PM ; [facility] Lose weight Last Documented On 3 8:03AM ; [facility] Intervention and counseling on cessation of tobacco use Last Documented On 3 1:20PM ; [facility] Lose weight Last Documented On 3 1:20PM ; [facility] Intervention and counseling on cessation of tobacco use Last Documented On 2 8:13AM ; [facility] Lose weight Last Documented On 2 8:13AM ; [facility] Intervention and counseling on cessation of tobacco use Last Documented On 2 3:49PM ; [facility] Lose weight Last Documented On 2 3:49PM ; [facility] Intervention and counseling on cessation of tobacco use Last Documented On 2 4:00PM ; [facility] Lose weight Last Documented On 2 4:00PM ; [facility] Intervention and counseling on cessation of tobacco use Last Documented On 2 2:11PM ; [facility] Lose weight Last Documented On 2 2:11PM ; [facility] Intervention and counseling on cessation of tobacco use Last Documented On 2 2:53PM ; [facility] Lose weight Last Documented On 2 2:53PM ; [facility] Assessments Includes: Assessments for all patient encounters No Assessments Recorded Instructions Includes: Instructions for all patient encounters Instructions to patient Intervention and counseling on cessation of tobacco use Last Documented On 3 7:47AM ; [facility] Lose weight Last Documented On 3 8:14AM ; [facility] Lose weight Last Documented On 3 8:43AM ; [facility] Intervention and counseling on cessation of tobacco use Last Documented On 3 4:51PM ; [facility] Lose weight Last Documented On 3 8:03AM ; [facility] Intervention and counseling on cessation of tobacco use Last Documented On 3 1:20PM ; [facility] Lose weight Last Documented On 3 1:20PM ; [facility] Intervention and counseling on cessation of tobacco use Last Documented On 2 8:13AM ; [facility] Lose weight Last Documented On 2 8:13AM ; [facility] Intervention and counseling on cessation of tobacco use Last Documented On 2 3:49PM ; [facility] Lose weight Last Documented On 2 3:49PM ; [facility] Intervention and counseling on cessation of tobacco use Last Documented On 2 4:00PM ; [facility] Lose weight Last Documented On 2 4:00PM ; [facility] Intervention and counseling on cessation of tobacco use Last Documented On 2 2:11PM ; [facility] Lose weight Last Documented On 2 2:11PM ; [facility] Intervention and counseling on cessation of tobacco use Last Documented On 2 2:53PM ; [facility] Lose weight Last Documented On 2 2:53PM ; [facility] Medical Equipment - Implanted Devices Includes: Current and historical Devices No Medical Equipment Recorded Medications Includes: Current and historical Medications Current Medications (continue as prescribed) Aspir-Low 81 MG Oral Tablet Delayed Release 01/29/2022 Provider: Diagnosis: Last Documented On 2 3:07PM By Mervat Paula ; [facility], [facility] Metoprolol Succinate ER 50 M G Oral Tablet Extended Release 24 Hour 01/24/2022 Provider: DANNY LOVE Diagnosis: Last Documented On 2 3:06PM By Mervat Paula ; [facility] Rosuvastatin Calcium 10 MG Oral Tablet 01/08/2022 Pr ovider: DANNY LOVE Diagnosis: Last Documented On 2 3:06PM By Mervat Paula ; [facility] Fenofibrate Micronized 134 MG Oral Capsule 11/13/2021 Provider: DANNY LOVE Diagnosis: Last Documented On 2 3:06PM By Mervat Paula ; [facility] Januvia 100 MG Oral Tablet 10/26/2021 Provider: Joelle LOVE Diagnosis: Last Documented On 2 3:06PM By Mervat Paula ; [facility], [facility] Past Medications on file HYDROcodone-Acetaminophen 5- 325 MG Oral Tablet 06/17/2022 - 07/02/2022 Provider: Elias Johnson MD Diagnosis: 1 po q 4h prn pain Last Documented On 3 9:26AM By Elias Johnson ; [facility], [facility] Medications Administered Includes: Administered Medications in patient's chart No Administered Medications Recorded Results Includes: Results from 03/31/2024 through 03/31/2025 No Results Recorded For Specified Dates History of Present Illness History of Present Illness not supported for this document type No History of Present Illness Recorded Social History Description Last Updated Tobacco use 10/08/2022 Last Documented On 3 7:47AM ; [facility] Alcohol use 10/08/2022 Last Documented On 3 7:47AM ; [facility] Not using drugs 10/08/2022 Last Documented On 3 7:47AM ; [facility] Yes, current smoker. 10/08/2022 Last Documented On 3 7:47AM ; [facility] Caffeine use 01/29/2022 Last Documented On 2 12:10PM ; [facility] Exercising regularly 01/29/2022 Last Documented On 2 12:10PM ; [facility] No recent change in diet 01/29/2022 Last Documented On 2 12:10PM ; [facility] Alcohol use: 2 drinks or less per day Last Documented On 2 12:10PM ; [facility] Never used drugs 01/29/2022 Last Documented On 2 12:10PM ; [facility] 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 Last Documented On 2 12:10PM ; [facility] Not a tobacco non-user 01/29/2022 Last Documented On 2 12:10PM ; [facility], [facility] Smoking Status Unknown Procedures and Surgical History Surgical History Last Updated History of appendectomy 01/29/2022 Last Documented On 2 12:10PM ; [facility] History of History of Gallbladder 2021 Last Documented On 2 12:10PM ; [facility] Medical History Includes: Medical History in patient's chart Description Last Updated No recent immunization for pneumococcal pneumonia 01/29/2022 Last Documented On 2 12:10PM ; [facility] Recent immunization for flu 2020 022 Last Documented On 2 12:10PM ; [facility], [facility] History of History of Heart Attack / Str [place] 01/29/2022 Last Documented On 2 12:10PM ; [facility] History of Sleep Apnea 01/29/2022 Last Documented On 2 12:10PM ; [facility] Recent immunization for flu 01/29/2022 Last Documented On 2 12:10PM ; [facility] Use of CPAP 01/29/2022 Last Documented On 2 12:10PM ; [facility] Family History Includes: Family History in patient's chart Description Last Updated Family history of cancer 01/29/2022 Last Documented On 2 12:10PM ; [facility] Stroke / Seizures 01/29/2022 Last Documented On 2 12:10PM ; [facility] Maternal grandfather's history of Stroke / Seizures 01/29/2022 Last Documented On 2 12:10PM ; [facility] Maternal grandmother's history of Stroke / Seizures 01/29/2022 Last Documented On 2 12:10PM ; [facility] Maternal history of family history of ca ncer 01/29/2022 Last Documented On 2 12:10PM ; [facility] Paternal grandfather's history of Stroke / Seizures 01/29/2022 Last Documented On 2 12:10PM ; [facility] Paternal history of Stroke / Seizures Last Documented On 2 12:10PM ; [facility] Review of Systems Review of Systems not supported for this document type No Review of Systems Recorded Mental Status Description No anxiety Functional Status No Functional Status Recorded Physical Exam Physical Exam not supported for this document type No Physical Exam Recorded Allergies Includes: Active, inactive, and resolved Allergies No Known Allergies Insurance Includes: Active Insurance Policies Plan Name Member ID Group # Subscriber Relationship Effect merari Dates 1 - [facility] [id number] Angelica Lara Self 06/09/2021 - Unknown Clinical Notes Includes: Signed Clinical Notes starting from 05/23/2022 No Clinical Notes Recorded
--- OUTSIDE RECORDS SUMMARY | 2025-03-31 13:24 | XMS_ITS ---
Care Plan - [facility] Created on: March 31, 2025 Angelica Lara : 1965 Sex: Female Author Organization [facility] Address [address] [place] [address] Phone Care Team Providers Care Sales Representative Supervisor Name Role Phone DANNY LOVE Unavailable [phone] Dequan Ribera MD Unavailable [phone]
== END 2025-03-30 23:59 | disposition home or self-care (01) ==
LOC: LAB.DROPOF 03-31 13:00
PROVIDERS: PCP Nurse Practitioner Family; Visit Provider Nurse Practitioner Family
DX: I10 Essential (primary) hypertension (principal)
CPT/HCPCS: 80048